=== PATIENT | female | born 1985 | race Two or more races ===

== ENCOUNTER 2025-06-09 00:55 | Emergency (ER) | payer OTHER, MEDICAID, SELFPAY ==
--- NOTE | 2025-06-09 01:04 | EDNOTE_ITS ---
ED Allergic Reaction RME/HPI General Chief complaint: Allergic Reaction Stated complaint: allergic reaction feels throat is closing Time Seen by Provider: 06/09/25 01:10 Arrival date/time: 06/09/25 00:55 RME / HPI RME / HPI narrative: See [facility] Related Data Previous Rx's ?Medication ?Instructions ?Recorded diphenhydramine HCl 25 mg capsule 25 mg PO Q8H PRN all ergic symptoms 09/06/21 (Benadryl) #30 caps prednisone 50 mg tablet 50 mg PO QDAY #5 tabs epinephrine 0.3 mg/0.3 mL 0.3 ml subcut .once PRN 05/21 11/13 injection, auto-injector (EpiPen) hypersensitivity swati ction #2 ea prednisone 50 mg tablet 50 mg PO BID 2 days #4 tabs 06/09/25 Allergies Allergy/AdvReac Type Severity Reaction Status Date / Time milk Allergy Unknown Rash Verified 04/25/22 19:56 ALMONDS Allergy Mild Rash Uncoded 04/25/22 19:56 SHELLFISH Allergy Mild LIPS SWELL Uncoded 04/25/22 19:56 Review of Systems Review of Systems Systems Reviewed: All systems reviewed, normal except as documented Past Medical History Past Medical History OTHER HISTORY: Positive Chicken Pox Family History FAMILY HISTORY: Positive Family Cardiac Disorders ED Exam Narrative Physical exam: See [facility] Course Quality Measures none Orders Category Date Time Status EKG (ED ONLY) *Do not use* NOW Care 06/09/25 01:14 Completed Saline [Insert IV] NOW Care 06/09/25 01:12 Active EKG (ED Only) Stat Exams 06/09/25 01:14 Ordered BNP [B-Type Natriuretic Peptide] Stat Lab 06/09/25 01:51 Completed Bilirubin,Direct Stat Lab 06/09/25 01:51 Completed CBC Stat Lab 06/09/25 01:51 Completed CMP [Comprehensive Metabolic Panel] Stat Lab 06/09/25 01:51 Completed Magnesium Stat Lab 06/09/25 01:51 Completed TSH [Thyroid Stimulating Hormone] Stat Lab 06/09/25 01:51 Completed Troponin I Stat Lab 06/09/25 01:51 Completed Albuterol/Ipratr Rt Josette [Duoneb Rt Josette] Med 06/09/25 01:12 Discontinued 3 ml INH X1 ONE DiphenhydrAMINE INJ [Benadryl Inj] Med 06/09/25 01:12 Discontinued 50 mg IVP X1 STA Famotidine Inj [Pepcid Inj] Med 06/09/25 01:12 Discontinued 20 mg IVP X1 ONE MethylPREDNISolone.* [SoluMEDROL Inj] Med 06/09/25 01:12 Discontinued 125 mg IVP X1 ONE Metoprolol Tartrate [Lopressor] Med 06/09/25 01:12 Discontinued 50 mg PO X1 ONE Ondansetron Inj [Zofran Inj] Med 06/09/25 01:12 Discontinued 4 mg IVP X1 ONE Sodium Chloride 0.9% 1000 ml [Ns] 1,000 ml Med 06/09/25 01:12 Discontinued IV 999 mls/hr cloNIDine HCL [Catapres] Med 06/09/25 01:12 Discontinued 0.3 mg PO X1 ONE Vital Signs Vital signs: Vital Signs Temperature 97.7 F 06/09/25 01:07 Pulse Rate 92 06/09/25 01:07 Respiratory Rate 19 06/09/25 01:07 Blood Pressure 200/124 H 06/09/25 01:07 Pulse Oximetry (%) 99 06/09/25 01:07 Oxygen Delivery Method Room Air 06/09/25 01:07 Allergic Reaction MDM Narrative MDM Narrative:: Scribe Attestation: I, Pauline Natarajan, am scribing for and in the presence of Dr. Ortiz. This section includes all my notes and documentations, including HPI, PE, and ED course. Júnior Ortiz MD HPI: 39 y/o female presents with rash, itching, and throat tightness just [employer]. No other complaints. ROS: All negative except as documented in HPI. Physical Exam: General: Alert and oriented. No acute distress when remaining still. High BP noted. Eyes: Conjunctivae and lids clear. ENT: No nasal congestion. Patent airway. Pharynx normal with normal-sized tongue. Neck: Supple. Heart: RRR. Lungs: No respiratory distress. Good air movement. No rhonchi, wheezing, rales. Abdomen: Soft and nontender. Skin: Warm and dry. Diffuse hives. Neuro: Alert and oriented X 3. I reviewed all diagnostic test results: My interpretation of the EKG: NSR (94 bpm) with no ST-T changes. Blood tests unremarkable. Patient didn't take her BP medication for several days. At this point, diagnoses include: Allergic reaction High BP due to noncompliance Treatment here included: IVF, Duoneb, Bendaryl 50 mg IV, Pepcid 20 mg IV, SoluMedrol 125 mg IV, oral Lopressor 50 mg, Zofran 4 mg, and oral Catapres 0.3 mg. Significant improvement noted. Recommended outpatient management. Based on my best medical judgment, made decision no further evaluation or treatment indicated at this time. Patient understands and agrees to the discharge instructions customized and printed, see below. Discharge instructions from Dr. Ortiz: 1. You were treated today for severe allergic reaction. 2. To help prevent the reaction going into your airways and your throat, take prednisone as prescribed. 3. And take Benadryl 50 mg every 6-8 hours today and tomorrow then as needed. 4. Increase oral fluid and maintain clear urine.? If dark or yellow, increase oral fluid.? This will help eliminate any allergens in your blood system. 5. EpiPen as needed. Always carry this with you. 6. Make sure you take your BP medication every single day as prescribed. 7. See your private doctor on 06/11/2025 for recheck. Ask for a referral to see an corporate affairs manager so you can be tested to know what to avoid in the future. 8. Seek immediate medical care with worsening, breathing difficulty, or with any concerns. Júnior Ortiz MD Patient data External records reviewed:: [facility] previous records (Reviewed prior ED records from 04/25/22. Patient was seen for Allergic reaction.) Clinical information provided by:: patient Social determinants that could affect healthcare access:: none Patient has the following chronic illnesses:: None reported How is presenting disease/condition affected by chronic disease/condition?: no chronic disease Evaluation data The following diagnostics were reviewed and interpreted by me:: lab results and EKG tracing(s) (My interpretation of the EKG: NSR (94 bpm) with no ST-T changes. Júnior Ortiz MD) Lab and/or radiology exams considered but not ordered:: None Interpretation Summary: I reviewed all diagnostic test results: My interpretation of the EKG: NSR (94 bpm) with no ST-T changes. Blood tests unremarkable. Medications / Prescriptions Medications or Prescriptions considered but not ordered:: None Medication administrations:: Medication Administration History Discontinued Medications Albuterol/Ipratropium (Albuterol/Ipratropium (Duoneb) Rt Josette 3 Ml Nebu) 3 ml INH X1 ONE Stop: 06/09/25 01:13 Last Admin: 06/09/25 01:30 Dose: 3 ml Documented By: SC Clonidine (Clonidine Hcl 0.1 Mg Tablet) 0.3 mg PO X1 ONE Stop: 06/09/25 01:13 Last Admin: 06/09/25 01:43 Dose: 0.3 mg Documented By: HEIDI Diphenhydramine HCl (Diphenhydramine Inj 50 Mg/Ml Vial) 50 mg IVP X1 STA Stop: 06/09/25 01:13 Last Admin: 06/09/25 01:43 Dose: 50 mg Documented By: HEIDI Famotidine (Famotidine Inj 10 Mg/Ml Vial 2 Ml) 20 mg IVP X1 ONE Stop: 06/09/25 01:13 Last Admin: 06/09/25 01:42 Dose: 20 mg Documented By: HEIDI Sodium Chloride (Ns) 1,000 mls @ 999 mls/hr IV .Q1H1M ONE Stop: 06/09/25 02:12 Last Admin: 06/09/25 01:42 Dose: 999 mls/hr Documented By: HEIDI Methylprednisolone Sodium Succinate (Methylprednisolone Sod Succ 62.5 Mg/Ml 2ml Vial) 125 mg IVP X1 ONE Stop: 06/09/25 01:13 Last Admin: 06/09/25 01:42 Dose: 125 mg Documented By: HEIDI Metoprolol Tartrate (Metoprolol Tartrate 25 Mg Tablet) 50 mg PO X1 ONE Stop: 06/09/25 01:13 Last Admin: 06/09/25 01:43 Dose: 50 mg Documented By: HEIDI Ondansetron HCl (Ondansetron Inj 2 Mg/Ml Inj 2 Ml) 4 mg IVP X1 ONE; Protocol Stop: 06/09/25 01:13 Last Admin: 06/09/25 01:43 Dose: 4 mg Documented By: HEIDI Treatment here included: IVF, Duoneb, Bendaryl 50 mg IV, Pepcid 20 mg IV, SoluMedrol 125 mg IV, oral Lopressor 50 mg, Zofran 4 mg, and oral Catapres 0.3 mg. Consultations Consultation(s) initiated? (list below): No Diagnosis Differential Diagnosis allergic reaction: anaphylaxis, allergic reaction, angioedema, contact dermatitis, adverse reaction to drug, viral enanthem and urticaria Most likely diagnosis given after review of the tests above:: At this point, diagnoses include: Allergic reaction High BP due to noncompliance Admission Indicated Admission indicated?: not indicated Explain why admission is indicated or not indicated:: With significant improvement and no condition needing emergent intervention, there was no indication for admission. Admission Request Was there a request for admission?: No Disposition Plan Disposition Plan: Discharge Discharge Attestation Discharge Attestation: The patient and all family members were given an opportunity to ask questions and understood the discharge instructions. Discharge instructions specifically effects, indications for sooner follow up or return to the emergency department, and the expected course of current diagnosis. Patient condition: Stable Discharge Plan Plan Patient Disposition: HOME (Self Care) Prescriptions/Referrals Prescriptions/Med Rec: New prednisone 50 mg tablet 50 mg PO BID 2 Days Qty: 4 0RF epinephrine [EpiPen] 0.3 mg/0.3 mL auto-injector 0.3 ml subcut .once PRN (Reason: hypersensitivity reaction) Qty: 2 0RF No Action diphenhydramine HCl [Benadryl] 25 mg capsule 25 mg PO Q8H PRN (Reason: allergic symptoms) Qty: 30 0RF prednisone 50 mg tablet 50 mg PO QDAY Qty: 5 0RF Referrals: Thai Mohan MD [Primary Care Provider] - In 1 week Problem List Clinical Impression: Allergic reaction Patient/Caregiver Discharge Instructions Discharge Activity: activity as tolerated Education Materials: ED General Allergic Reactions Additional Instructions: Discharge instructions from Dr. Ortiz: 1. You were treated today for severe allergic reaction. 2. To help prevent the reaction going into your airways and your throat, take prednisone as prescribed. 3. And take Benadryl 50 mg every 6-8 hours today and tomorrow then as needed. 4. Increase oral fluid and maintain clear urine.? If dark or yellow, increase oral fluid.? This will help eliminate any allergens in your blood system. 5. EpiPen as needed. Always carry this with you. 6. Make sure you take your BP medication every single day as prescribed. 7. See your private doctor on 06/11/2025 for recheck. Ask for a referral to see an corporate affairs manager so you can be tested to know what to avoid in the future. 8. Seek immediate medical care with worsening, breathing difficulty, or with any concerns. Print Language: Surinamese Stand Alone Forms: Julianne Award Info., Patient Portal Info Letter
[2025-06-09 01:07] VITALS: BP 200/124; BP 200/151; PULSE 92; RESP 19; TEMP 36.5; O2SAT 99; BMI 36.3; BMI 39.9
[2025-06-09 01:10] VITALS: BP 200/151; PULSE 90; RESP 19; TEMP 36.9; O2SAT 97
[2025-06-09 01:30] VITALS: PULSE 81; RESP 18; O2SAT 100
[2025-06-09] MEDS: ALBUTEROL/IPRATROPIUM (Duoneb) RT SOL 3 ML NEBU INH (01:30)
[2025-06-09] MEDS: MethylPREDNISolone SOD SUCC 62.5 MG/ML 2ML VIAL 125 MG IVP (01:42)
[2025-06-09] MEDS: SODIUM CHLORIDE 0.9% 1000 ML 1,000 ML 999 ML IV (01:42)
[2025-06-09] MEDS: FAMOTIDINE INJ 10 MG/ML VIAL 2 ML 20 MG IVP (01:42)
[2025-06-09 01:43] VITALS: BP 175/107; PULSE 83
[2025-06-09] MEDS: ONDANSETRON INJ 2 MG/ML INJ 2 ML 4 MG IVP (01:43)
[2025-06-09] MEDS: METOPROLOL TARTRATE 25 MG TABLET 50 MG PO (01:43)
[2025-06-09 02:11] LABS: Basophils # (Auto) 0.0 Thou/mm3 (0.0-0.2); Basophils % (Auto) 1 % (0-2.5); Eosinophils # (Auto) 0.1 Thou/mm3 (0.0-0.5); Eosinophils % (Auto) 2 % (0-10); Hematocrit 33.9 % (36.0-46.0); Hemoglobin 12.2 g/dL (12.0-16.0); Immature Granulocytes Auto 0.02 Thou/mm3 (0.00-0.00); Lymphocytes # (Auto) 2.3 Thou/mm3 (1.0-4.8); Lymphocytes % (Auto) 45 % (10-50); Mean Corpuscular HGB Conc 36.0 g/dl (31.0-37.0); Mean Corpuscular Hemoglobin 32.3 pg (25.0-35.0); Mean Corpuscular Volume 90 fL (80-100); Monocytes # (Auto) 0.3 Thou/mm3 (0.0-0.8); Monocytes % (Auto) 6 % (0-12); Neutrophils # (Auto) 2.4 Thou/mm3 (1.8-7.7); Neutrophils % (Auto) 47 % (37-80); Nucleated Red Blood Cell # 0.00 Thou/mm3 (0.00-0.00); Nucleated Red Blood Cell % 0 /100 WBC (0); Platelet Count 243 Thou/mm3 (140-440); RDW Standard Deviation 43.7 fL (36.4-46.3); Red Blood Count 3.78 Miln/mm3 (4.00-5.20); White Blood Count 5.2 Thou/mm3 (3.6-11.0)
[2025-06-09 03:07] LABS: Alanine Aminotransferase 107 U/L (10-49); Albumin, Serum 4.5 gm/dL (3.5-5.0); Albumin/Globulin Ratio 1.8 (1.2-2.2); Alkaline Phosphatase 60 U/L (46-116); Anion Gap 12 (7-16); Aspartate Amino Transferase 61 U/L (0-34); BUN/Creatinine Ratio 9 Ratio (12-20); Bilirubin,Direct < 0.1 mg/dL (0.0-0.3); Bilirubin,Total 0.4 mg/dL (0.3-1.2); Blood Urea Nitrogen 7 mg/dL (9-23); Calcium 10.3 mg/dL (8.3-10.6); Calcium (Corrected) 10.3 mg/dL (8.5-10.1); Carbon Dioxide 24.2 mMol/L (20.0-31.0); Chloride 102 mMol/L (98-107); Creatinine (Component) 0.8 mg/dL (0.6-1.3); Estimated Creatinine Clearance 99.8 mL/min (>60); Globulin 2.5 gm/dL (2.3-3.5); Glucose 162 mg/dL (74-106); Magnesium 1.8 mg/dL (1.6-2.6); Osmolality,Calculated 277 (275-295); Potassium 3.5 mMol/L (3.4-5.1); Sodium 138 mMol/L (136-145); Thyroid Stimulating Hormone 2.16 uIU/mL (0.55-4.78); Total Protein 7.0 gm/dL (5.7-8.2); Troponin I < 0.020 ng/mL (0.0-0.045); eGFR > 60 See Note
[2025-06-09 03:16] LABS: B-Type Natriuretic Peptide < 20 pg/mL (0-100)
[2025-06-09 03:25] VITALS: BP 153/75; PULSE 72; RESP 18; TEMP 36.8; O2SAT 100
== END 2025-06-09 04:08 | disposition home or self-care (01) ==
PROVIDERS: Emergency Provider Emergency Medicine; PCP Family Medicine
DX: T78.40XA Allergy, unspecified, initial encounter (principal); I10 Essential (primary) hypertension; Z91.148 Patient's other noncompliance with medication regimen for other reason; Z91.018 Allergy to other foods; Z91.013 Allergy to seafood; X58.XXXA Exposure to other specified factors, initial encounter
CPT/HCPCS: 36415; 80053; 82248; 83735; 83880; 84443; 84484; 85025; 93005; 94640; 99283; A9270; J1200; J2405; J2919; J3490; J7030